=== PATIENT | male | born 1995 | race Caucasian/White ===

== ENCOUNTER 2021-09-01 22:48 | Emergency (ER) | payer SELFPAY ==
[~2021-09-01] VITALS: Ht 172.7 cm; Wt 67.3 kg
[2021-09-01 22:55] VITALS: BP 136/98
--- NOTE | 2021-09-01 23:01 | ED EENT ---
History of Present Illness General Chief Complaint: Dental Problems/Pain Stated Complaint: DENTAL PAIN Source: patient History of Present Illness Date Seen by Provider: September 01, 2021 Time Seen by Provider: 22:57 Initial Comments 26-year-old male presenting with complaints of sudden severe dental pain. He has multiple broken and decayed teeth in his mouth. He states that he was not doing anything other than trying to go to sleep this evening when he had sudden severe pain to the right upper frontal teeth. He has a tooth that is mostly broken off of the tooth right behind that has exposed pulp. He does not have a regular dentist but plans to go see a dentist tomorrow to see about getting tooth pulled. He denies any fever or chills. He has had a headache since the dental pain started. He tried rinsing his mouth with hydrogen peroxide. Timing/Duration: abrupt Severity: severe Location: dental Prearrival Treatment: over the counter meds Associated Symptoms: No change in hearing, No cough, No drooling, No ear drainage; facial pain/swelling; No fever, No malaise, No nasal congestion/drainage, No poor fluid intake, No poor solids intake, No sinus infection, No sore throat; tooth pain; No voice change Allergies and Home Medications Allergies Coded Allergies: No Known Drug Allergies (Unverified , 09/01/21) Patient Home Medication List Home Medication List Reviewed: Yes Amoxicillin/Potassium Clav (Amox Tr-K Clv 875-125 mg Tab) 875 Mg-125 Mg Tablet, 1 EACH PO BID Prescribed by: XIEMNA QUINTANILLA on 09/01/212328 Hydrocodone/Acetaminophen (Hydrocodone-Acetamin 5-325 mg) 5 Mg-325 Mg Tablet, 1 TAB PO Q6H PRN for PAIN-SEVERE (8-10) Prescribed by: XIMENA QUINTANILLA on 09/01/212328 Ibuprofen (Ibuprofen) 800 Mg Tablet, 800 MG PO Q8H PRN for PAIN Prescribed by: XIMENA QUINTANILLA on 09/01/212328 Review of Systems Review of Systems Constitutional: No chills, No fever Eyes: No Symptoms Reported Ears: No Symptoms Reported Nose: no symptoms reported Mouth: see HPI Throat: no symptoms reported Respiratory: no symptoms reported Cardiovascular: no symptoms reported Gastrointestinal: no symptoms reported Musculoskeletal: no symptoms reported Skin: no symptoms reported Neurological: Headache Past Ayxwkev-Yktsjc-Lzzcff Hx Patient Social History Tobacco Use?: Yes Tobacco type used: Cigarettes Smoking Status: Current Everyday Smoker Physical Exam Vital Signs Vital Signs - First Documented 09/01/21 22:55 Temp 36.9 Pulse 94 Resp 18 B/P (MAP) 136/98 (111) Pulse Ox 100 O2 Delivery Room Air Height, Weight, BMI Height: '" Weight: lbs. oz. kg; BMI Method: General Appearance: moderate distress Eyes: bilateral eye PERRL, bilateral eye EOMI Mouth/Throat: dental tenderness (Widespread dental decay with multiple broken and decayed teeth) Neck: non-tender, full range of motion, supple, normal inspection Cardiovascular: normal peripheral pulses Neurologic/Psychiatric: alert, oriented x 3 Skin: normal color, warm/dry Progress/Results/Core Measures Results/Orders My Orders Orders - XIMENA QUINTANILLA MD Ketorolac Injection (Toradol Injection) (09/01/21 23:19) Amoxicillin/Clavulanate Tablet (Augmenti (09/01/21 23:19) Vital Signs/I&O 09/01/21 22:55 Temp 36.9 Pulse 94 Resp 18 B/P (MAP) 136/98 (111) Pulse Ox 100 O2 Delivery Room Air Progress Progress Note : Progress Note Patient was requesting a shot for pain. He states he had been here several years ago when it was [facility] and gotten a shot. He states he is currently on parole and cannot have narcotics in his system. He has urine tests he does every Thursday. He requested not have renal colic due to illness. When offered injection numbing medicine in his mouth he was concerned that would make his pain worse and sore jaw made the pain worse. He was going to get a shot in his muscle to try and help with pain. He will start antibiotics and then we will send a prescription for narcotic and he will check with his [employer] officer in the morning if its something he could take. Departure Impression Primary Impression: Pain due to dental caries Additional Impression: Pain, dental Disposition: HOME, SELF-CARE Condition: Stable Departure-Patient Inst. Decision time for Depature: 23:24 Referrals: NO,LOCAL PHYSICIAN (PCP) Primary Care Physician [facility] Patient Instructions: Tooth Decay ED, Dental Pain ED Add. Discharge Instructions: Take antibiotic to help with possible infection making your pain worse. The dentist usually wants you to take an antibiotic for a few days before they would pull a tooth. Follow up with dentist as soon as possible. Take Ibuprofen to help with the pain. Check with your [employer] officer to see if you can take the Hydrocodone/Acetamin ophen pills for stronger pain, provided you have the prescription we give you from here for the pills. All discharge instructions reviewed with patient and/or family. Voiced understanding. Scripts Hydrocodone/Acetaminophen (Hydrocodone-Acetamin 5-325 mg) 5 Mg-325 Mg Tablet 1 TAB PO Q6H PRN for PAIN-SEVERE (8-10) for 4 Days, #16 TAB 0 Refills Prov: XIMENA QUINTANILLA MD 09/01/21 Ibuprofen (Ibuprofen) 800 Mg Tablet 800 MG PO Q8H PRN for PAIN for 10 Days, #30 TAB 0 Refills Prov: XIMENA QUINTANILLA MD 09/01/21 Amoxicillin/Potassium Clav (Amox Tr-K Clv 875-125 mg Tab) 875 Mg-125 Mg Tablet 1 EACH PO BID for dental infection for 10 Days, #20 TAB 0 Refills Prov: XIMENA QUINTANILLA MD 09/01/21 Images Mouth/Nose 1 - Caries, Fracture Tooth, Tenderness XIMENA QUINTANILLA MD September 01, 2021 23:01
[2021-09-01] MEDS ORDERED: KETOROLAC 60 MG/2 ML VIAL IM STA (23:19)
[2021-09-01] MEDS ORDERED: AUGMENTIN 875 MG TAB (AMOXICILLIN/CLAVULANATE) PO STA (23:19)
[2021-09-01] MEDS ORDERED: AMOX1TAB12 PO (23:29)
[2021-09-01] MEDS ORDERED: ACHD5005 PO (23:29)
[2021-09-01] MEDS ORDERED: IBUP-1780 PO (23:29)
== END 2021-09-01 23:31 | disposition home or self-care (01) ==
LOC: ER FS 22:53
DX: S02.5XXA Fracture of tooth (traumatic), initial encounter for closed fracture (principal); K02.9 Dental caries, unspecified; F17.210 Nicotine dependence, cigarettes, uncomplicated; X58.XXXA Exposure to other specified factors, initial encounter
CPT/HCPCS: 99284